=== PATIENT | male | born 1960 | race Caucasian/White ===

== ENCOUNTER 2019-06-17 13:40 | Outpatient (CLI) | payer BC | END 2019-06-17 23:59 | disposition home or self-care (01) | LOC: ROC 13:40 | PROVIDERS: ATTEND Radiology Radiation Oncology | DX: D32.0 Benign neoplasm of cerebral meninges (principal) | CPT/HCPCS: 99214; G0463 ==

== ENCOUNTER → 2019-06-27 | Outpatient (CLI) | payer BC ==
[~2019-06-27] MED LIST: GADOTERATE 10 MMOL/20 ML VIAL ONE
== END | disposition home or self-care (01) ==
LOC: CFH 13:49
PROVIDERS: ATTEND Radiology Radiation Oncology
DX: D32.0 Benign neoplasm of cerebral meninges (principal); G93.89 Other specified disorders of brain
CPT/HCPCS: 70553; A9575

== ENCOUNTER 2020-02-15 07:28 | Outpatient (CLI) | payer BC | END 2020-02-15 23:59 | disposition home or self-care (01) | LOC: ROC 07:28 | PROVIDERS: ATTEND Radiology Radiation Oncology | DX: Z09 Encounter for follow-up examination after completed treatment for conditions other than malignant neoplasm (principal); Z86.011 Personal history of benign neoplasm of the brain | CPT/HCPCS: 99213; G0463 ==